=== PATIENT | female | born 1955 | race Caucasian/White ===

== ENCOUNTER 2017-12-04 09:00 | Day surgery (SDC) | payer BC ==
[2017-11-27 14:52] LABS: BASOPHILS # (AUTO) 0.1 X10'3 (0-0.2); BASOPHILS % (AUTO) 1.6 % (0-1); EOSINOPHILS # (AUTO) 0.2 X10'3 (0-0.9); EOSINOPHILS % (AUTO) 3.1 % (0-6); LYMPHOCYTES # (AUTO) 1.7 X10'3 (1.1-4.8); LYMPHOCYTES % (AUTO) 23.7 % (21-51); MEAN CORPUSCULAR HEMOGLOBIN 29.7 PG (27.0-31.0); MEAN CORPUSCULAR HGB CONC 34.7 % (33.0-36.5); MEAN CORPUSCULAR VOLUME 85.6 FL (78-98); MEAN PLATELET VOLUME 8.4 FL (7.4-10.4); MONOCYTES # (AUTO) 0.5 X10'3 (0-0.9); MONOCYTES % (AUTO) 6.7 % (2-12); NEUTROPHILS # (AUTO) 4.8 X10'3 (1.8-7.7); NEUTROPHILS % (AUTO) 64.9 % (42-75); PRE OP HEMATOCRIT 34.2 % (35.0-45.0); PRE OP HEMOGLOBIN 11.9 g/dL (12.0-16.0); PRE OP PLATELET COUNT 258 X10'3 (140-440); RED CELL DISTRIBUTION WIDTH 17.7 % (11.5-14.5)
[2017-11-27 15:06] LABS: UA COLLECTION TYPE CLN CATCH MIDSTREAM
[2017-11-27 15:07] LABS: ALBUMIN 3.5 G/DL (3.4-5.0); ALBUMIN/GLOBULIN RATIO 0.9 (1.1-1.5); ALKALINE PHOSPHATASE 108 IU/L (46-116); BLOOD UREA NITROGEN 13 MG/DL (7-18); BUN/CREATININE RATIO 14.9 (6.6-38.0); CHLORIDE 105 MMOL/L (99-107); CREATININE 0.87 MG/DL (0.40-0.90); PRE OP ALT 16 U/L (30-65); PRE OP ANION GAP 4 (8-16); PRE OP AST 20 U/L (10-37); PRE OP BILIRUB, TOTAL 0.7 MG/DL (0.0-1.0); PRE OP GLUCOSE 105 MG/DL (70-104); PRE OP POTASSIUM 3.7 MMOL/L (3.4-5.1); PRE OP SODIUM 142 MMOL/L (135-145); TOTAL CARBON DIOXIDE 32.7 MMOL/L (24-32); TOTAL PROTEIN 7.4 G/DL (6.4-8.2); eGFR 66 ML/MIN
[2017-11-27 15:07] LABS: CLARITY,URINE CLEAR (Clear); COLOR,URINE YELLOW (Yellow); PH,URINE 5.5 (4.8-8.0)
[2017-11-27 15:08] LABS: GLUCOSE, URINE NEGATIVE (Neg); KETONES,URINE NEGATIVE (Neg); LEUKOCYTE ESTERASE ,URINE NEGATIVE (Neg); NITRITES, URINE NEGATIVE (Neg); OCCULT BLOOD,URINE NEGATIVE (Neg); PROTEIN,URINE NEGATIVE (Neg); UROBILINOGEN,URINE 0.2 E.U/dL (0.2-1.0)
[2017-12-04] VITALS (8 sets, daily range): BP systolic 121–169; BP diastolic 53–96
[~2017-12-04] VITALS: Ht 167.6 cm; Wt 119.3 kg
[~2017-12-04 09:00] MED LIST: ALBU8.5H8 INH; LEVO100T PO; UMEC1DIS; ceFAZolin inj. 3,000 MG in normal saline 100ml IV soln 100 ML IV ONE; famotidine 20mg tablet PO ONE; ringers solution, lacted 1,000 ML IV SCH
[2017-12-04] MEDS ORDERED: LIDOcaine 1% (10mg/ml) 2ml vial ONE (09:25)
[2017-12-04] MEDS ORDERED: BUPIVAcaine/PF 2.5mg/ml (0.25%) 10ml vial ONE (11:08)
[2017-12-04] MEDS ORDERED: ceFAZolin 1000mg inj ONE (11:08)
[2017-12-04] MEDS ORDERED: fentaNYL/PF 50MCG/1 ML 2ML syringe ONE (11:22)
[2017-12-04] MEDS ORDERED: midazolam 2 mg/2 ml injection ONE (11:22)
[2017-12-04] MEDS ORDERED: ondansetron/PF 4mg/2ml inj ONE ×2 (11:26→12:48)
[2017-12-04] MEDS ORDERED: propofol inj 20 ML IV ONE (11:26)
[2017-12-04] MEDS ORDERED: sevoflurane 250ml liquid IH ONE (11:26)
[2017-12-04] MEDS ORDERED: dexamethasone sod phosphate 4mg/ml inj. ONE (11:45)
[2017-12-04] MEDS ORDERED: ringers solution, lacted 1,000 ML IV SCH (11:53)
[2017-12-04] MEDS ORDERED: ondansetron/PF 4mg/2ml inj IV PRN (11:55)
[2017-12-04] MEDS ORDERED: meperidine/PF 25mg/ml syringe IV PRN ×3 (11:55)
[2017-12-04] MEDS ORDERED: proCHLORperazine 10 MG/2 ml inj IV PRN (11:55)
[2017-12-04] MEDS ORDERED: morphine 4 MG/ML inj SYRINge IV PRN ×2 (11:55)
== END 2017-12-04 13:50 | disposition home or self-care (01) ==
LOC: PAS 09:00
PROVIDERS: ATTEND Surgery
DX: K43.2 Incisional hernia without obstruction or gangrene (principal); G47.33 Obstructive sleep apnea (adult) (pediatric); E66.01 Morbid (severe) obesity due to excess calories; M19.90 Unspecified osteoarthritis, unspecified site; E03.9 Hypothyroidism, unspecified; Z98.51 Tubal ligation status; Z68.41 Body mass index [BMI] 40.0-44.9, adult; Z90.49 Acquired absence of other specified parts of digestive tract; Z96.653 Presence of artificial knee joint, bilateral; Z79.899 Other long term (current) drug therapy; Z98.890 Other specified postprocedural states
CPT/HCPCS: 36415; 49565; 49568; 80053; 81003; 85025; 93005; A6449; C1781; J0690; J1100; J2250; J2405; J2704; J3010; J3490; J7030; J7120; A7000